=== PATIENT | male | born 1985 | race American Indian/Alaskan Native ===

== ENCOUNTER 2023-05-27 16:05 | Emergency (ER) | payer OTHER, SELFPAY ==
--- NOTE | ~2023-05-27 | XR_ITS ---
EXAMINATION: XR ankle RT min 3V DATE: 05/27/2023 19:56 INDICATION: Right ankle injury. TECHNIQUE: 3 views of right ankle were obtained. COMPARISON: None. FINDINGS: Bone alignment is normal. No fracture. Joint spaces are normal. There are enthesophytes at the posterior and plantar aspects of calcaneal tuberosity. There is ankle soft tissue swelling. IMPRESSION: 1. No fracture. Reviewed, dictated and finalized at location E. INE ROOM OPERATOR IMPRESSION: 1. No fracture.
--- NOTE | ~2023-05-27 | XR_ITS ---
EXAMINATION: XR knee RT min 4V DATE: 05/27/2023 19:56 INDICATION: Right knee injury. TECHNIQUE: 4 views of right knee were obtained. COMPARISON: None. FINDINGS: Bone alignment is normal. No fracture. Joint spaces are normal. No knee joint effusion. IMPRESSION: 1. No fracture. Reviewed, dictated and finalized at location E. TANT GENERAL IMPRESSION: 1. No fracture.
[2023-05-27 16:43] VITALS: BP 145/87; PULSE 71; RESP 20; TEMP 37.6; O2SAT 100
--- NOTE | 2023-05-27 20:29 | ED.LOWEXIN ---
HPI - Extremity Injury (Lower) General Chief Complaint: Extremity Injury, Lower Stated Complaint: R. leg injury Time Seen by Provider: 05/27/23 19:49 History of Present Illness HPI Narrative: Patient is a 38-year-old male presenting with right leg pain. States that he was helping a friend move some pallets when 1 slipped and struck his right ankle. He then fell and landed on his right knee. He continues to have pain in his knee and ankle. No numbness or weakness. Did not strike his head or lose consciousness. No further complaints or injuries. Related Data Allergies Allergy/AdvReac Type Severity Reaction Status Date / Time aspirin Allergy Hives Verified 05/27/23 16:46 Review of Systems Review of Systems: All systems reviewed & are unremarkable except as noted in HPI and below Exam Narrative: GENERAL: Well-appearing, In no acute distress, pleasant cooperative HEAD: Normocephalic, atraumatic. EYES: PERRLA and EOMI. ENT: grossly unremarkable NECK: Supple. CHEST: No respiratory distress. HEART: Regular rate and rhythm EXTREMITIES: Normal range of motion. lateral R ankle is erythematous, swollen, diffusely tender; pulses intact; R knee with mild lateral tenderness; abrasion to anterior right junior SKIN: Warm, dry NEURO: Alert and oriented x3. PSYCH: Normal mood and affect. Course Vital Signs Vital signs: Vital Signs Temperature 99.6 F 05/27/23 16:43 Pulse Rate 71 05/27/23 16:43 Respiratory Rate 20 05/27/23 16:43 Blood Pressure 145/87 H 05/27/23 16:43 Pulse Oximetry 100 05/27/23 16:43 Oxygen Delivery Room Air 05/27/23 16:43 Temperature 99.6 F 05/27/23 16:43 Pulse Rate 73 05/27/23 21:03 Respiratory Rate 20 05/27/23 16:43 Blood Pressure 145/87 H 05/27/23 16:43 Pulse Oximetry 99 05/27/23 21:03 Oxygen Delivery Room Air 05/27/23 16:43 MDM - Extremity Injury (Lower) MDM Narrative Medical decision making narrative: patient is a 38-year-old male presenting with right knee and ankle pain. Vitals are stable. Exam remarkable for the above. X-ray show no fractures. Discussed appropriate supportive care. PCP follow-up recommended. Discharged in stable condition. Differential Diagnosis Differential diagnosis: Likely ankle sprain and strain, acute internal derangement of knee and ankle fracture Imaging Data Radiologist's impression: ITS Impressions Ankle X-Ray 05/27/23 20:02 IMPRESSION: 1. No fracture. Knee X-Ray 05/27/23 20:03 IMPRESSION: 1. No fracture. Critical Care Time Critical Care Time Critical Care Time: No Discharge Plan Discharge Clinical Impression: Ankle sprain and strain Patient Disposition: Home, Self-Care Condition: Stable Instructions: Antibiotic Form, Ankle Sprain (DC) Additional Instructions: The x-ray showed no broken bones today. Please use Tylenol and ibuprofen for pain control. Please rest and apply ice to help with inflammation. Please follow-up with primary care. Follow-up/Referrals: Rodolfo Rivas MD [Physician] - Stand Alone Forms: Work/School Release IP
[2023-05-27] MEDS: ACETAMINOPHEN 500 MG TABLET 1000 MG PO (20:34)
[2023-05-27] MEDS: KETOROLAC 30 MG/ML VIAL (*BKC) IM (20:35)
[2023-05-27 21:03] VITALS: PULSE 73; O2SAT 99
--- NOTE | 2023-05-27 21:04 | PC.NURSE ---
gerry wrap applied to RIGHT ankle, cms intact
== END 2023-05-27 21:04 | disposition home or self-care (01) ==
PROVIDERS: Emergency Provider Emergency Medicine
DX: S93.401A Sprain of unspecified ligament of right ankle, initial encounter (principal); W22.8XXA Striking against or struck by other objects, initial encounter
CPT/HCPCS: 73564; 73610; 96372; 99284; A9270; J1885